=== PATIENT | female | born 1985 | race Caucasian/White ===

== ENCOUNTER 2020-11-08 09:46 | Outpatient (REF) | payer OTHER, SELFPAY ==
[2020-11-08 11:12] LABS: MANUAL DIFF FLAG NO
[2020-11-08 11:25] LABS: Basophils Percent Auto 0.6 % (0-2); Eosinophils Percent Auto 0.7 % (0-4); Hematocrit 43.3 % (37-47); Hemoglobin 14.7 g/dl (12.0-16.0); Imm Gran Abs Auto 0.01 X10*3/uL (0.00-0.03); Imm Gran Pct Auto 0.2 % (0.0-0.4); Lymphocytes Absolute Auto 1.6 X10*3/uL (1.2-4.9); Lymphocytes Percent Auto 28.8 % (20-40); Mean Corpuscular HGB Conc 33.9 g/dl (31.0-35.0); Mean Corpuscular Hemoglobin 30.6 pg (27.0-33.0); Mean Platelet Volume 11.4 fL (9.4-12.3); Monocytes Absolute Auto 0.3 X10*3/uL (0.1-1.2); Monocytes Percent Auto 4.6 % (2-11); Neutrophils Absolute Auto 3.6 X10*3/uL (2.0-8.3); Neutrophils Percent Auto 65.1 % (45-73); Platelet Count 260 X10*3/uL (160-400); Red Blood Count 4.81 X10*6/uL (4.20-5.50); Red Cell Distribution Width 12.1 % (11.0-16.0); White Blood Count 5.5 X10*3/uL (4.8-10.8)
[2020-11-08 11:59] LABS: Alanine Aminotransferase 23 U/L (0-31); Albumin Level 4.3 g/dL (3.5-5.0); Alkaline Phosphatase 87 U/L (39-117); Anion Gap 12 (12-20); Aspartate Amino Transferase 22 U/L (5-31); Bilirubin Total 0.6 mg/dL (0.0-1.0); Blood Urea Nitrogen 13 mg/dL (9-16); Calcium 9.1 mg/dL (8.4-10.2); Carbon Dioxide 26 mmol/L (22-29); Chloride 104 mmol/L (96-108); Cholesterol 168 mg/dL; Estimated Glomerular Filt Rate > 60; Glucose Fasting 85 mg/dL (60-99); HDL Cholesterol 49 mg/dL; LDL Cholesterol Calculated 103 mg/dl; Potassium 4.4 mmol/L (3.3-5.1); Sodium 138 mmol/L (135-145); Triglycerides 81 mg/dL
== END 2020-11-08 09:47 | disposition home or self-care (01) ==
LOC: HO.HMGCLDS 09:46
PROVIDERS: PCP Nurse Practitioner Family; Visit Provider Nurse Practitioner Family
DX: Z00.00 Encounter for general adult medical examination without abnormal findings (principal)
CPT/HCPCS: 36415; 80053; 80061; 84443; 85025

== ENCOUNTER 2020-11-22 10:27 | Outpatient (REF) | payer OTHER, SELFPAY ==
--- NOTE | ~2020-11-22 | CT_ITS ---
CT ANGIOGRAM BRAIN, HEAD CLINICAL INFORMATION: Family history of ischemic heart disease. COMPARISON: None available. TECHNIQUE: Test bolus sequences followed by intravenous administration 100 mL of Omnipaque 350 intravenous contrast. Helical imaging was performed in the axial plane from the skull base to the vertex. Delayed postcontrast imaging of the head was also performed. Vascular post-processing, including 2-dimensional and 3-dimensional reformatted images were created and reviewed on an independent workstation under concurrent physician supervision. Stenoses are graded per criteria similar to NASCET. This CT examination was performed using dose optimization techniques as appropriate, variously including the following: *Automated exposure control *Adjustment of mA and/or kV according to patient size (this includes techniques or standardized protocols for targeted exams where dose is matched to indication/reason for exam; i.e. extremities or head) *Use of iterative reconstruction technique FINDINGS: The anterior and posterior intracranial arterial circulations are normal in caliber. There are no significant arterial stenoses and there are no acute arterial occlusions within the head or neck. No aneurysms. There is no intracranial hemorrhage, hydrocephalus, extra-axial surface collection, midline shift, or other herniation pattern. Dhaliwal to white matter differentiation is diffusely maintained without evidence of an evolved acute territorial infarct. The basilar cisterns are preserved. No significant soft tissue abnormality. No acute osseous abnormality. The paranasal sinuses and the mastoid air cells are well aerated. CT/CT angio head IMPRESSION: Unremarkable CTA of the head.
--- NOTE | ~2020-11-22 | CT_ITS ---
EXAMINATION: CT CHEST WITH CONTRAST CLINICAL INFORMATION: Family history of ischemic heart disease. COMPARISON: None TECHNIQUE: Multidetector volumetric CT imaging of the chest was obtained after the administration of 50 mL of Omnipaque 350 intravenous contrast without immediate adverse reactions. Axial MIP volume rendering provided. Sagittal and coronal reformatted images were obtained. This CT examination was performed using dose optimization techniques as appropriate, variously including the following: *Automated exposure control *Adjustment of mA and/or kV according to patient size (this includes techniques or standardized protocols for targeted exams where dose is matched to indication/reason for exam; i.e. extremities or head) *Use of iterative reconstruction technique DLP: 504 mGy-cm FINDINGS: UNIT TRUST MANAGER: Normal LUNGS: The lungs are clear with no evidence of inflammation or nodules. MEDIASTINUM: The mediastinum is normal. The heart size is normal. No coronary artery calcification is seen. There is no pericardial effusion. The thoracic aorta is normal in caliber. PLEURA: There is no pleural effusion. No pleural mass or thickening. AXILLA: No lymphadenopathy. UPPER ABDOMEN: There is a small low-attenuation lesion in the right lobe of the liver measuring 5 mm axial image 4 series 11. This is characterize due to small size but may represent a cyst. Images through the upper abdomen are otherwise unremarkable. OSSEOUS STRUCTURES: There are mild degenerative changes of the spine. CT/CT chest w con IMPRESSION: Unremarkable examination.
[2020-11-22] MEDS: iohexoL 350 MG/ML 100 ML INFUS..BTL IV (11:55)
== END 2020-11-22 10:28 | disposition home or self-care (01) ==
LOC: HO.CT 10:27
PROVIDERS: Visit Provider Nurse Practitioner Family
DX: Z82.49 Family history of ischemic heart disease and other diseases of the circulatory system (principal)
CPT/HCPCS: 70496; 71260; Q9967

== ENCOUNTER 2021-06-02 09:03 | Outpatient (REF) | payer OTHER, SELFPAY ==
[2021-06-02 13:59] LABS: CT PCR NOT DETECTED (Not Detect.); NG PCR NOT DETECTED (Not Detect.)
[2021-06-04 14:50] LABS: BV Int Neg Control Negative (Negative); BV Int Pos Control Positive (Positive)
[2021-06-06 21:16] LABS: HPV mRNA E6/E7 rflx Not Detected (Not Detected)
== END 2021-06-02 09:04 | disposition home or self-care (01) ==
LOC: HO.LAB 09:03
PROVIDERS: PCP Nurse Practitioner Family; Visit Provider Advanced Practice Midwife
DX: Z01.419 Encounter for gynecological examination (general) (routine) without abnormal findings (principal); Z11.51 Encounter for screening for human papillomavirus (HPV); Z20.2 Contact with and (suspected) exposure to infections with a predominantly sexual mode of transmission
CPT/HCPCS: 87480; 87491; 87510; 87591; 87624; 87660; 88142

== ENCOUNTER 2021-10-23 13:07 | Outpatient (REF) | payer OTHER, SELFPAY ==
[2021-10-24 06:54] LABS: CT PCR NOT DETECTED (Not Detect.); NG PCR NOT DETECTED (Not Detect.)
[2021-10-24 15:40] LABS: BV Int Neg Control Negative (Negative); BV Int Pos Control Positive (Positive)
== END 2021-10-23 13:08 | disposition home or self-care (01) ==
LOC: HO.LAB 13:07
PROVIDERS: PCP Nurse Practitioner Family; Visit Provider Advanced Practice Midwife
DX: R10.2 Pelvic and perineal pain (principal); Z30.433 Encounter for removal and reinsertion of intrauterine contraceptive device
CPT/HCPCS: 58300; 58301; 81025; 87480; 87491; 87510; 87591; 87660

== ENCOUNTER 2022-07-11 10:46 | Outpatient (REF) | payer OTHER, SELFPAY ==
--- NOTE | ~2022-07-11 | US_ITS ---
EXAMINATION: US VENOUS ULTRASOUND WITH DOPPLER LOWER EXTREMITY, BILATERAL CLINICAL INFORMATION: Localized edema COMPARISON: None TECHNIQUE: Ultrasound of the right and left lower extremity deep veins is performed from the hip to the calf with compression sonography and color and pulse Doppler assessment. Spectral analysis with color-flow imaging is performed. FINDINGS: RIGHT: There is normal venous compression and respiratory variation and augmented flow. The visualized common femoral vein, superficial femoral vein, profunda femoral vein, popliteal vein, and the trifurcation region shows no evidence of deep venous thrombosis. There is no significant popliteal fossa cyst. LEFT: There is normal venous compression and respiratory variation and augmented flow. The visualized common femoral vein, superficial femoral vein, profunda femoral vein, popliteal vein, and the trifurcation region shows no evidence of deep venous thrombosis. There is no significant popliteal fossa cyst. If the patient's symptoms persist, followup ultrasound in 5 days 7 days might be of value to exclude proximal propagation from a non-visualized calf vein. US/US venous duplex LE BI IMPRESSION: No DVT demonstrated in the right and left lower extremity.
== END 2022-07-11 10:47 | disposition home or self-care (01) ==
LOC: HO.HMGCX 10:46
PROVIDERS: PCP Nurse Practitioner Family; Visit Provider Nurse Practitioner Family
DX: R60.0 Localized edema (principal)
CPT/HCPCS: 93970

== ENCOUNTER → 2023-01-09 10:00 | Outpatient (REF) | payer OTHER, SELFPAY ==
--- NOTE | 2023-01-09 10:04 | CA_ITS ---
Transthoracic Echocardiogram Patient (Last, First, Middle): Radha Russell L Gender: Female Date of : 1985 Age: 37 Procedure Date: 01/09/2023 Procedure Type: Transthoracic Echocardiogram Location: OP Height: 162.56 cm Weight: 88.45 kg BSA: 1.94 m2 Heart Rate: bpm BP: 122 / 78 mmHg Conference Producer: Referring MD: Edinson Pacheco [facility]- Dermatology Physician Assistant: Gabriel Montalvo MD Symptoms: M79.89 - Other specified soft tissue disorders Study Quality: Fair ECG Rhythm: Sinus Conclusions: - Essentially normal study Findings Left Ventricle Normal left ventricular size, thickness, and systolic function. The visually estimated ejection fraction is between 55-60%. Spectral Doppler is indicative of a normal filling pattern. Right Ventricle Normal right ventricular cavity size and systolic function. Atria Both atria are normal in size. There is no evidence of interatrial shunt. Aortic Valve The aortic valve structure and function is likely normal. There is no aortic valve stenosis. There is no aortic valve regurgitation. Mitral Valve Likely normal mitral valve structure and function. There is trace mitral valve regurgitation. There is no mitral valve stenosis. Pulmonic Valve The pulmonic valve was not well visualized. Tricuspid Valve Likely normal tricuspid valve structure and function. There is trace tricuspid valve regurgitation. The right ventricular systolic pressure is normal. The right ventricular systolic pressure is 15 mmHg. Normal right atrial pressure. There is no evidence of pulmonary hypertension. Great Vessels All visible segments of the aorta are normal in size. The pulmonary artery was not well visualized. Venous The inferior vena cava is normal in size and collapses greater than 50% with inspiration. Pericardium/Pleural There is no evidence of pericardial effusion. Prior Study Comparison No prior study available for comparison. Measurements 2D Linear Measurements IVSd: 1.00 0.6-0.9/0.6-1.0 cm LVIDd: 4.57 3.9-5.3/4.2-5.9 cm LVIDd Index: 2.36 2.4-3.2/2.2-3.1 cm/m2 LVIDs: 2.86 2.0-3.6 cm LVPWd: 1.03 0.7-1.1 cm Ao Root: 2.70 2.1-3.5 cm LA Diam: 3.80 2.7-3.8/3.0-4.0 cm LAIDs Index: 1.96 1.5-2.3 cm/m2 LV Mass: 199.73 67-162/88-224 g LV Mass Index: 102.96 43-95/49-115 g/m2 LVOT Diam: 2.10 3.0+(-)1.3 cm 2D Systolic Function EF 4C: 54.90 >55% EF 2C: 60.80 >55% EF BiP: 58.30 >55% Mitral Valve MV Pk E: 0.84 MV PK A: 0.61 MV Decel Time: 182.00 E/A: 1.40 E'Lateral: 13.60 E'Medial: 8.49 E/E' Med: 9.90 E/E' Lat: 6.20 PHT: 53.00 MVA PHT: 4.15 Decel Barnwell: 4.60 Aortic Valve AoV Pk Chuy: 1.44 AoV Mn Chuy: 0.97 AoV VTI: 0.32 AoV Pk Grad: 8.00 Aov Mn Grad: 5.00 MORENA Cont.VTI: 2.47 LVOT LVOT Pk Chuy: 1.14 LVOT Mn Chuy: 0.72 LVOT VTI: 0.23 LVOT Pk Grad: 5.00 LVOT Mn Grad: 3.00 LVOT Diam: 2.10 LVOT Area: 3.46 Diastolic Function MV Pk E: 0.84 MV Pk A: 0.61 E/A: 1.40 E'Medial: 8.49 E/E' Med: 9.90 E' Laterial: 13.60 E/E' Lat: 6.20 Right Ventricle TAPSE (mm): 26.00 TVS' Chuy: 12.00 Tricuspid Valve TR Pk Chuy: 1.75 TR Pk Grad: 12.00 RA Press: 3.00 RVSP: 15.00 Great Vessels Aorta Ao Root-2D: 2.70 2.0-3.7 cm Ao Asc: 2.80 2.1-3.4 cm Pulmonary Valve PV Pk Chuy: 1.24 Peak PV Grad: 6.00 Updated in Other Vendor System with Status of Final Gabriel Montalvo MD electronically signed on 01/09/2023 3:32:51 PM with status of Final
--- NOTE | 2023-01-09 10:04 | HM_ITS ---
Conclusion: 1. Patient was monitored for total period of 2 days and 23 hours 2. Baseline was normal sinus rhythm with average heart rate of 87 beats per minute 3. No significant pauses noted 4. Rare PACs noted with 1 run of SVT, lasting 9 beats at 131 beats per minute 5. Patient had 4 events marked, without associated symptoms reported correlating with sinus rhythm or sinus tach with PAC and 1 with short run of SVE MTDD
== END ==
LOC: HO.CARD 10:00
PROVIDERS: PCP Nurse Practitioner Family; Visit Provider Nurse Practitioner Family
DX: R00.2 Palpitations (principal); R60.0 Localized edema
CPT/HCPCS: 93242; 93306

== ENCOUNTER → 2023-01-09 10:04 | Outpatient (BNV) | payer OTHER, SELFPAY | PROVIDERS: PCP Nurse Practitioner Family; Visit Provider Internal Medicine Cardiovascular Disease | DX: I49.1 Atrial premature depolarization (principal) | CPT/HCPCS: 93244; 93306 ==

== ENCOUNTER 2023-04-10 11:09 | Outpatient (AMB) | payer OTHER, SELFPAY ==
--- NOTE | 2023-04-10 11:10 | MHC.PC.OV ---
Vital Signs 04/10/23 11:12 Height 5 ft 4 in Weight 200 lb BMI 34.3 BP 130/80 Blood Pressure Location Lt brachial Position Sitting Pulse 96 Pulse Source Pulse Oximeter Pulse Oximetry (%) 98 Oxygen Delivery Method Room Air Intake Visit Reasons: PE Allergies No Known Allergies Allergy (Verified 07/11/22 08:36) Medication List - Last Reconciled 04/10/23 by EMILIE BoykinLAYNE levonorgestrel (Mirena) intrauterine losartan-hydrochlorothiazide 50-12.5 mg 1 tab PO DAILY 90 days Tobacco use date assessed: 12/26/22 Dental Screening Dental Screen Date: 04/10/23 Did you have a dental visit in the last 12 months?: No Did you have a dental problem in the last 6 months where you did not have access to dental care?: No Was dental information given to patient?: Patient has dentist HPI PE HPI Details Pt is here for a PE. Will order labs. Pt is following up with cardiology due to palpitations. She had a recent holter and echo, see results. I had sent propranalol 60mg er for pt to try. She reports not starting this. 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 Janes Bell, Ayleen Wesley, Declan Morales and colleagues, with an educational aurora from [employer]. Review of Systems Const Denies chills and Denies fever(s) Eyes Denies blurry vision ENT Denies vertigo, Denies dizziness and Denies sore throat Card Denies chest pain at rest, Denies chest pain with activity, Denies diaphoresis, Denies dyspnea and Denies dyspnea on exertion Resp Denies cough, Denies dyspnea, Denies dyspnea on exertion and Denies wheezing GI Denies abdominal pain, Denies melena, Denies hematochezia, Denies constipation, Denies diarrhea and Denies loose stools Denies hematuria Musc Denies numbness and Denies tingling Skin/Breast Denies lesions Neuro Denies vertigo, Denies dizziness, Denies numbness and Denies tingling Psych Denies anxiety, Denies depression, Denies homicidal ideation, Denies suicidal ideation and Denies other (substance abuse) Aller/Immun Denies wheezing Physical exam (Primary Care) Vital Signs: Last Vital Signs Pulse 96 04/10/23 11:12 BP 130/80 04/10/23 11:12 Pulse Ox 98 04/10/23 11:12 Oxygen Delivery Method Room Air 04/10/23 11:12 BMI result Body Mass Index 34.3 Tobacco/Smoking Status: Tobacco use Status Tobacco use date assessed 12/26/22 04/10/23 11:11 Patient Tobacco Use Status Never used Tobacco 04/10/23 11:11 e-Cigarette/Vaping Use Never Used 04/10/23 11:11 Thrive Assessment: Date of Thrive Assessment Date Thrive assessed 10/24/21 04/10/23 11:11 Const General: cooperative Nutritional Appearance: obese Orientation/consciousness: patient oriented x3 HENMT Head: Yes normal to inspection, Yes normocephalic and Yes atraumatic Ears: TM's normal bilaterally Eyes General: appearance normal, both eyes and all related structures Alignment and Position: alignment normal and position normal Neck Neck: Yes normal visual inspection and Yes no lymphadenopathy Thyroid: Thyroid normal Resp Effort & Inspection: normal respiratory effort Auscultation: clear to auscultation bilaterally Cardio Rate: regular rate Rhythm: regular rhythm Heart sounds: S1 normal heart sound present, S2 normal heart sound present and no murmurs GI Palpation (GI): Soft to palpation and nontender Auscultation: normal bowel sounds Skin Rashes: no rashes Neuro General: patient oriented x3, moves all extremities, no focal motor deficits and deep tendon reflexes 2+ bilaterally Romberg Test: Negative Psych Appearance: grossly normal Mental Status: mental status grossly normal Speech and movement: Normal speech and movement present Affect: normal affect Attitude: cooperative Thought process: Normal thought process present Thought content: Normal thought content present Insight: Good insight present (Psych) Judgement: Good judgement present (Psych) Assessment and Plan Assessment & Plan (1) Physical exam: Code(s): Z00.00 - Encounter for general adult medical examination without abnormal findings Plan: Labs ordered Plan The patient agreed to the use of a medical instructor for this encounter. Scribed for CELIO Douglas by Anna Marie Bowling medical instructor, on 04/10/2023 at 11:30 EST. Orders: Orders Comprehensive Hosmer. Panel Fast Today Z00.00 - Encounter for general adult medical examination without abnormal findings TSH reflex Free T4 Today Z00.00 - Encounter for general adult medical examination without abnormal findings Lipid Panel Today Z00.00 - Encounter for general adult medical examination without abnormal findings Complete Blood Count Auto Diff Today Z00.00 - Encounter for general adult medical examination without abnormal findings UA CC w/rflx Micro + Cult Today Z00.00 - Encounter for general adult medical examination without abnormal findings Medications: Changed From losartan-hydrochlorothiazide 50-12.5 mg 1 tab PO DAILY 30 days 30 tabs 2RF To losartan-hydrochlorothiazide 50-12.5 mg 1 tab PO DAILY 90 days 90 tabs 2RF Coding Level of Care Code Est Pt Prev Care 18-39y(65477) Diagnoses Physical exam Z00.00
[2023-04-10 11:12] VITALS: BP 130/80; PULSE 96; O2SAT 98; BMI 34.3
== END 2023-04-10 11:46 | disposition home or self-care (01) ==
LOC: HO.HMGC 11:09
PROVIDERS: PCP Nurse Practitioner Family; Visit Provider Nurse Practitioner Family
DX: Z00.00 Encounter for general adult medical examination without abnormal findings (principal)
CPT/HCPCS: 99395

== ENCOUNTER 2023-04-10 11:53 | Outpatient (REF) | payer OTHER, SELFPAY ==
[2023-04-10 13:08] LABS: MANUAL DIFF FLAG NO
[2023-04-10 13:15] LABS: Basophils Percent Auto 0.7 % (0-2); Eosinophils Absolute Auto 0.1 X10*3/uL (0.0-0.4); Eosinophils Percent Auto 1.5 % (0-4); Hematocrit 42.9 % (37.0-47.0); Hemoglobin 14.9 g/dl (12.0-16.0); Imm Gran Abs Auto 0.01 X10*3/uL (0.00-0.03); Imm Gran Pct Auto 0.2 % (0.0-0.4); Lymphocytes Absolute Auto 1.8 X10*3/uL (1.2-4.9); Lymphocytes Percent Auto 33.1 % (20-40); Mean Corpuscular HGB Conc 34.7 g/dl (31.0-35.0); Mean Corpuscular Hemoglobin 30.2 pg (27.0-33.0); Mean Platelet Volume 10.9 fL (9.4-12.3); Monocytes Absolute Auto 0.3 X10*3/uL (0.1-1.2); Monocytes Percent Auto 5.4 % (2-11); Neutrophils Absolute Auto 3.2 x10*3/uL (2.0-8.3); Neutrophils Percent Auto 59.1 % (45-73); Platelet Count 301 X10*3/uL (160-400); Red Blood Count 4.93 X10*6/uL (4.20-5.50); Red Cell Distribution Width 13.1 % (11.0-16.0); White Blood Count 5.4 X10*3/uL (4.8-10.8)
[2023-04-10 13:44] LABS: Appearance Urine Clear; Color Urine Dark Yellow; Glucose Urine UA Negative (Negative); Leukocyte Esterase Urine Small (1+) (Negative); Nitrite Urine Negative (Negative); Specific Gravity - Urine >= 1.030 (1.005-1.025); UMIC TRIGGER UACC YES; Urine Blood Negative (Negative); Urine Ketones Trace mg/dL (Negative); Urine Protein 30 (1+) mg/dL (Neg-Trace)
[2023-04-10 13:51] LABS: Bacteria Urine None Seen (None Seen); Hyaline Casts Urine 0-2 /LPF (0-2); UACC Culture Trigger YES
[2023-04-10 14:17] LABS: Alanine Aminotransferase 54 U/L (0-31); Albumin Level 4.3 g/dL (3.5-5.0); Alkaline Phosphatase 87 U/L (39-117); Anion Gap 14 (12-20); Aspartate Amino Transferase 32 U/L (5-31); Bilirubin Total 0.6 mg/dL (0.0-1.0); Blood Urea Nitrogen 13 mg/dL (9-16); Calcium 9.5 mg/dL (8.4-10.2); Carbon Dioxide 27 mmol/L (22-29); Chloride 104 mmol/L (96-108); Cholesterol 211 mg/dL (<200); Estimated Glomerular Filt Rate > 60; Glucose Fasting 92 mg/dL (60-99); HDL Cholesterol 45 mg/dL (>40); LDL Cholesterol Calculated 139 mg/dL (<100); Potassium 4.1 mmol/L (3.3-5.1); Sodium 141 mmol/L (135-145); TSH reflex Free T4 1.34 uIU/mL (0.32-4.0); Total Protein 7.6 g/dL (6.5-8.0); Triglycerides 139 mg/dL (<150)
== END 2023-04-10 11:54 | disposition home or self-care (01) ==
LOC: HO.HMGCLDS 11:53
PROVIDERS: PCP Nurse Practitioner Family; Visit Provider Nurse Practitioner Family
DX: Z00.00 Encounter for general adult medical examination without abnormal findings (principal); R82.90 Unspecified abnormal findings in urine; E66.9 Obesity, unspecified; I10 Essential (primary) hypertension; M79.89 Other specified soft tissue disorders
CPT/HCPCS: 36415; 80053; 80061; 81001; 84443; 85025; 87086

== ENCOUNTER 2023-04-17 12:38 | Outpatient (AMB) | payer OTHER, SELFPAY ==
--- NOTE | 2023-04-17 12:42 | MHC.OFFVIS ---
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 For the last few months or so, she has been noticing fluttering in the chest. These are off and on and can happen any time. Whenever these happen, she is quite bothered by. Underwent Holter for the same and that shows sinus tachycardia and some atrial ectopy. However, minimal burden. Otherwise, she also has had some lower extremity swelling and that led to vein procedures through vascular. She has had a couple of visits to [facility] for blood pressure issues and after that, put on blood pressure medications. Weight is on the higher side and she states she has gained some weight, probably about 20 lb or so over the last year. No documented obstructive sleep apnea. Otherwise, no history of any coronary disease, myocardial infarction or cardiomyopathy. 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 Current occupational exposures/hazards: No Gender identity: Female Cognitive needs: No Hearing needs: No Vision needs: No Female Reproductive History Menstrual Age of Menarche: 9 Review of Systems Const Denies chills, Denies daytime sleepiness, Denies fatigue, Denies fever(s), Denies frequent falls, Denies night sweats, Denies snoring, Denies weakness, Denies weight gain and Denies weight loss Eyes Denies loss of vision ENT Denies dizziness and Denies hearing loss Card Denies chest pain, Denies chest pain with activity, Denies syncope, Denies rapid heart rate, Denies edema, Denies claudication, Denies leg edema, Denies lightheadedness, Denies palpitations, Denies dyspnea, Denies dyspnea on exertion and Denies orthopnea Resp Denies cough, Denies excessive phlegm production, Denies dyspnea, Denies dyspnea on exertion, Denies snoring and Denies wheezing GI Denies abdominal pain, Denies hematochezia, Denies change in bowel habits, Denies change in stool character, Denies heartburn, Denies nausea and Denies vomiting Denies hematuria, Denies urinary frequency and Denies dysuria Musc Denies arthralgias, Denies muscle weakness, Denies numbness and Denies tingling Skin/Breast Denies nail changes and Denies rash Neuro Denies Abnormal speech present, Denies dizziness, Denies syncope, Denies frequent falls, Denies loss of vision, Denies memory loss, Denies numbness, Denies tingling and Denies weakness Psych Denies depression and Denies memory loss Endo Denies fatigue and Denies palpitations Aller/Immun Denies wheezing Physical Exam Vital Signs: Last Vital Signs Pulse 82 04/17/23 12:44 BP 128/92 H 04/17/23 12:44 Const General: comfortable and no acute distress Orientation/consciousness: patient oriented x3 HEENT Other: Unremarkable Head: Yes normal to inspection Neck Neck: Yes normal visual inspection Chest Chest palpation & inspection: normal inspection of the chest Resp Auscultation: clear to auscultation bilaterally Cardio Palpation: normal PMI Heart sounds: S1 normal heart sound present, S2 normal heart sound present, no gallops, no murmurs and no rubs GI Palpation (GI): Soft to palpation Back/Spine/Pelvis Other: unremarkable Skin General skin exam: no rashes or lesions noted Neuro General: patient oriented x3 Speech: No Abnormal speech present Extrem General: Yes normal to inspection Psych Mental Status: mental status grossly normal Office Procedures EKG Details: EKG with sinus rhythm at 82/Min; poor R-wave progression most likely from body habitus; [place]. [address]-[id number], Complete Assessment & Plan Assessment & Plan (1) Palpitations: Code(s): R00.2 - Palpitations (2) Sinus tachycardia: Code(s): R00.0 - Tachycardia, unspecified (3) Atrial arrhythmia: Code(s): I49.8 - Other specified cardiac arrhythmias (4) Leg swelling: Code(s): M79.89 - Other specified soft tissue disorders (5) Morbid obesity: Code(s): E66.01 - Morbid (severe) obesity due to excess calories Plan Echocardiogram with LVEF of 55-60%. No significant valvular issues and otherwise unremarkable. Holter shows underlying sinus rhythm and rare supraventricular ectopy. Sinus tachycardia noted. Various issues she has including atrial arrhythmias, lower extremity swelling as well as high blood pressure are likely all related to her weight. Hence primary treatment for all these would be to lose weight and hopefully, they would improve. She states she was prescribed beta-blockers which may be used for temporary relief but main focus should be still on weight loss. With regard to the lower extremity swelling, she has already undergone vein ablation. Again, losing weight will immensely help. For blood pressure, seems better than before when according to patient was as much as 200/100 mm Hg. Again, with weight loss, this should improve. We discussed about the above issues at great length. All questions answered. She will contact us with ongoing concerns. Otherwise, we will plan to follow her up in about 4-6 months. Coding Level of Care Code New Pt Level 4 (52059) Diagnoses Palpitations R00.2 Sinus tachycardia R00.0 Atrial arrhythmia I49.8 Leg swelling M79.89 Morbid obesity E66.01 CPT Codes EKG - CPT: 79375-[id number], Complete ([id number])
[2023-04-17 12:44] VITALS: BP 128/92; PULSE 82
== END 2023-04-17 13:14 | disposition home or self-care (01) ==
PROVIDERS: PCP Nurse Practitioner Family; Visit Provider Internal Medicine
DX: R00.2 Palpitations (principal); R00.0 Tachycardia, unspecified; I49.8 Other specified cardiac arrhythmias; M79.89 Other specified soft tissue disorders; E66.01 Morbid (severe) obesity due to excess calories
CPT/HCPCS: 93010; 99204

== ENCOUNTER → 2023-04-17 12:38 | Outpatient (BNVA) | payer OTHER, SELFPAY | PROVIDERS: PCP Nurse Practitioner Family; Visit Provider Internal Medicine | DX: R00.2 Palpitations (principal); R00.0 Tachycardia, unspecified | CPT/HCPCS: 93005 ==

== ENCOUNTER 2023-04-24 09:55 | Outpatient (REF) | payer OTHER, SELFPAY ==
--- NOTE | ~2023-04-24 | US_ITS ---
EXAMINATION: US ABDOMEN COMPLETE CLINICAL INFORMATION: Elevated liver enzymes. Abnormal levels of other serum enzymes. COMPARISON: CT abdomen and pelvis without and with contrast dated 12/20/2014. TECHNIQUE: Real-time imaging of the abdominal viscera. Technically difficult study secondary to bowel gas and body habitus. FINDINGS: PANCREAS: Partially visualized pancreas is unremarkable. The tail and pancreatic head are obscured by bowel gas. ABDOMINAL AORTA: The proximal, mid, and distal segments are normal in caliber. INFERIOR VENA CAVA: Visualized portions are normal. LIVER: Liver is echogenic and heterogeneous. Liver is enlarged with the right lobe measured approximately 20 cm. The liver contour is normal. No focal hepatic lesion. There is no intrahepatic biliary duct dilatation seen. GALLBLADDER: There is irregular wall most likely due to adenomyomatosis with tiny 0.3 cm polyp. The gallbladder is physiologically distended without evidence of stones, sludge, polyps, wall thickening or pericholecystic fluid. COMMON BILE DUCT: Normal in caliber measuring 0.3 cm in diameter. RIGHT KIDNEY: Normal. No hydronephrosis. No renal calculi or focal parenchymal lesions. The kidney measures 12.0 cm in maximum dimension. LEFT KIDNEY: Normal. No hydronephrosis. No renal calculi or focal parenchymal lesions. The kidney measures 12.5 cm in maximum dimension. SPLEEN: Normal. The spleen measures 9.2 cm in maximum dimension. FREE FLUID: None. US/US abdomen complete IMPRESSION: 1. Hepatomegaly and heterogeneous echogenicity of the liver without focal lesion. 2. Adenomyomatosis of the gallbladder with small polyp.
== END 2023-04-24 09:56 | disposition home or self-care (01) ==
LOC: HO.HMGCX 09:55
PROVIDERS: PCP Nurse Practitioner Family; Visit Provider Nurse Practitioner Family
DX: R74.8 Abnormal levels of other serum enzymes (principal)
CPT/HCPCS: 76700

== ENCOUNTER 2024-08-10 10:52 | Outpatient (REF) | payer OTHER, SELFPAY ==
[2024-08-10 13:14] LABS: MANUAL DIFF FLAG NO
[2024-08-10 13:20] LABS: Appearance Urine Clear; Color Urine Dark Yellow; Glucose Urine UA Negative (Negative); Leukocyte Esterase Urine Trace (Negative); Nitrite Urine Negative (Negative); PH 7.5 (5.0-9.0); Specific Gravity - Urine >= 1.030 (1.005-1.025); UMIC TRIGGER UACC YES; Urine Blood Negative (Negative); Urine Ketones Trace mg/dL (Negative); Urine Protein 30 (1+) mg/dL (Neg-Trace)
[2024-08-10 13:22] LABS: Basophils Absolute Auto 0.1 X10*3/uL (0.0-0.2); Basophils Percent Auto 0.7 % (0-2); Eosinophils Absolute Auto 0.1 X10*3/uL (0.0-0.4); Eosinophils Percent Auto 1.2 % (0-4); Hematocrit 43.8 % (37.0-47.0); Hemoglobin 14.9 g/dl (12.0-16.0); Imm Gran Abs Auto 0.02 X10*3/uL (0.00-0.03); Imm Gran Pct Auto 0.3 % (0.0-0.4); Lymphocytes Absolute Auto 2.4 X10*3/uL (1.2-4.9); Lymphocytes Percent Auto 34.3 % (20-40); Mean Corpuscular Hemoglobin 29.8 pg (27.0-33.0); Mean Corpuscular Volume 87.6 fL (80.0-98.0); Mean Platelet Volume 11.3 fL (9.4-12.3); Monocytes Absolute Auto 0.4 X10*3/uL (0.1-1.2); Monocytes Percent Auto 5.1 % (2-11); Neutrophils Percent Auto 58.4 % (45-73); Platelet Count 280 X10*3/uL (160-400); Red Cell Distribution Width 12.8 % (11.0-16.0); White Blood Count 6.9 X10*3/uL (4.8-10.8)
[2024-08-10 13:29] LABS: Bacteria Urine None Seen (None Seen); Hyaline Casts Urine 0-2 /LPF (0-2); RBC Urine 0-2 /HPF (0-2); WBC Urine 0-5 /HPF (0-5)
[2024-08-10 14:02] LABS: Alanine Aminotransferase 35 U/L (0-31); Albumin Level 4.3 g/dL (3.5-5.0); Alkaline Phosphatase 75 U/L (39-117); Anion Gap 8 (12-20); Aspartate Amino Transferase 29 U/L (5-31); Bilirubin Total 0.7 mg/dL (0.0-1.0); Blood Urea Nitrogen 12 mg/dL (9-16); Calcium 9.3 mg/dL (8.4-10.2); Carbon Dioxide 27 mmol/L (22-29); Chloride 107 mmol/L (96-108); Cholesterol 186 mg/dL (<200); Estimated Glomerular Filt Rate > 60; Glucose Fasting 96 mg/dL (60-99); HDL Cholesterol 45 mg/dL (>40); LDL Cholesterol Calculated 121 mg/dL (<100); Potassium 4.2 mmol/L (3.3-5.1); Sodium 138 mmol/L (135-145); Total Protein 7.6 g/dL (6.5-8.0); Triglycerides 103 mg/dL (<150)
[2024-08-10 14:23] LABS: TSH reflex Free T4 1.73 uIU/mL (0.32-4.0)
--- OUTSIDE RECORDS SUMMARY | 2024-08-10 15:45 | XMS_ITS | Continuity of Care Document ---
Author Organization [facility] Address [address] 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 Name Role Phone Clifford Crenshaw Unavailable Unavailable Allergies, Adverse Reactions, Alerts Substance Reaction Status Criticality No Known Allergies Active No Inform ation Medications Medication Instructions Dosage Effective Dates (start - stop) Status Comments Mirena 20 mcg/24 hours (6 yrs) 52 mg intrauterine device - Active Procedures Procedure Date Office/Outpt E&M Established 15 Mins Jan Duplex Scan-extrem Veins; Uni/ Endovenous Laser, 1st Vein Endovenous laser vein addon Offic/outpt E&m Estab 5 Min Trial - Tele medicine Office/Outpt E&M Established 15 Mins Aug Duplex Scan-extrem Veins; Comp Office/Oupt E&M New Pt 30 Mins Advance Directives Directive Yes / No Effective Date File Name No Information Encounters Encounter Description Practice Location Reason(s) For Visit Diagnoses Date Provider Providers Copied on Encounter Office/Outpt E&M Established 15 Mins [facility], [address] [facility] [address], [id number], [place] tel:[phone] CVR - [facility] Chronic venous htn w oth comp of bilateral low extrm 3 Shameka Horton. [address] [place] [address], [place], [place], [id number], [place]. tel:[phone] Referring Provider: Edinson Salazar, [address] [place] [address], [place], [address]. tel:[phone] [facility] MD CORDERO, [address] [place] [address] [address], [id number], [place] tel:[phone] [facility] for f/u exam aft trtmt for cond oth than malig neoplmVenous insufficiency (chronic) (peripheral) 3 Samir Haji. [address] [place] [address], [place], [address], [place]. tel:[phone] Referring Provider: Edinson Salazar, [address] [place] [address], [place], [address]. tel:[phone] [facility] MD CORDERO, [address] [place] [address] [address], [id number], [place] tel:[phone] [facility] Venous insufficiency (chronic) (peripheral) 3 Samir Haji. [address] [place] [address], [place], [address], [place]. tel:[phone] Referring Provider: Edinson Salazar, [address] [place] [address], [place], [address]. tel:[phone] Offic/outpt E&m Estab 5 Min Trial - Telemedicine [facility], [address] [place] [address] [address], [id number], [place] tel:[phone] CVR - [facility] Body mass index (BMI) 32.0-32.9, adultVenous insufficiency (chronic) (peripheral) 3 Samir Haji. [address] [place] [address], [place], [address], [place]. tel:[phone] Referring Provider: Edinson Salazar, [address] [facility], [place], [address]. tel:[phone] Office/Outpt E&M Established 15 Mins [facility], [address] [place] [address] [address], [id number], [place] tel:[phone] [place] Venous insufficiency (chronic) (peripheral) 3 Samir BAUTISTA FACS T JOHN Haji. [address] [place] [address], [facility] [place], [address], [place]. tel:[phone] Referring Provider: Edinson Salazar, [address] [place] [address], [place], [address]. tel:[phone] [facility] MD CORDERO, [address] [place] [address] [address], [place], [id number], [place] tel:[phone] [facility] [place] Venous insufficiency (chronic) (peripheral) 3 Samir BAUTISTA FACS PADMINI Haji. [address] [place] [address], [facility] [place], [address], [place]. tel:[phone] Referring Provider: Edinson Salazar, [address] [place] [address], [place], [address]. tel:[phone] Office/Oupt E&M New Pt 30 Mins [facility] C[facility], [address] [place] [address] [address], [id number], [place] tel:[phone] [facility] [place] Localized edemaVenous insufficiency (chronic) (peripheral)P ruritus, unspecified 3 Samir BAUTISTA FACS PADMINI Haji. [address] [place] [address], [place] [address], [place], [address], [place]. tel:[phone] Referring Provider: Edinson Salazar, [address] [facility], [place], [address]. tel:[phone] Family History Family Member Type Diagnosis Age At Onset No Information Payers Payer name Insurance type Covered democrat ID Toshia mccloud(s) [facility] [id number] Social History Type Description Quantity Date Captured Comments Alcohol Use Details Unknown Caffeine Use Details Unknown Tobacco Use Status Never smoked tobacco 2022 Smoking Status Never smoker Non-Smoking Tobacco Use Details : No Details Available : No Details Available Sex Female Vital Signs Date / Time: Height Weight BMI Pulse Rate Blood Pressure Temperature Respiratory Rate Body Surface Area Head Circumference Head Circ. Percentile Wt./Sanchez. Percentile BMI percentile Pulse Ox Inhaled Ox 3:25 PM 65.00 in 138/88 mm[Hg] Chief Complaint And Reason For Visit No Information Reason For Referral Reason For Referral No Information Plan Of Treatment Date Type Action Status Goal Diet education completed Goal Diet education completed Referral Ordered: Weight management: Referral to physician timeframe: 3 Months (related to Body mass index (BMI) 32.0-32.9, adult) ordered History Of Present Illness Encounter Date Complaint History Of Prese nt Illness No Information Functional Status Date Functional Assessmen t No Information Instructions Date Instruction Additional Infor diaz Patient education booklet given Related to Chrn Vns Hyprtnsn w/Compl (Pain Edema Swelling); BILAT Giving Encouragement to Exercise Related to Body mass index [BMI] 32.0-32.9, adult Diet education Related to Body mass index [BMI] 32.0-32.9, adult Patient education booklet given Related to Venous Insufficiency (Chronic / Peripheral) Diet education Related to Body mass index (BMI) 32.0-32.9, adult Giving Encouragement to exercise Related to Body mass index (BMI) 32.0-32.9, adult Lifestyle education Related to B anu mass index (BMI) 32.0-32.9, adult Patient education booklet given Related to Localized edema Assessments Type Assessment Date assessment Chronic venous htn w oth comp of bilateral low extrm Patient Care Teams Name Effective Dates (start - stop) Status Members No Information
== END 2024-08-10 10:53 | disposition home or self-care (01) ==
LOC: HO.HMGCLDS 10:52
PROVIDERS: PCP Nurse Practitioner Family; Visit Provider Nurse Practitioner Family
DX: I10 Essential (primary) hypertension (principal)
CPT/HCPCS: 36415; 80053; 80061; 81001; 84443; 85025

== ENCOUNTER 2024-08-13 10:39 | Outpatient (AMB) | payer OTHER, SELFPAY ==
[2024-08-13 10:45] VITALS: BP 122/80; PULSE 80; RESP 14; TEMP 37.2; O2SAT 97; BMI 34.0
--- NOTE | 2024-08-13 10:45 | A.OFFPC_ITS ---
Vital Signs 08/13/24 10:45 Height 5 ft 4 in Weight 198 lb BMI 34.0 BP 122/80 Blood Pressure Location Lt brachial Position Sitting Respiration 14 Pulse 80 Pulse Source Pulse Oximeter Temp 98.9 F Temp Source Oral Pulse Oximetry (%) 97 Oxygen Delivery Method Room Air Intake Visit Reasons: Followup meds Intake Note: pt is here for f/up medication Barge Worker Required: No Accompanied by: Self / Same As Patient Allergies No Known Allergies Allergy (Verified 08/13/24 10:45) Medication List - Last Reconciled 08/13/24 by Edinson Pacheco, COMPUTER ENGINEERING TECHNOLOGIST- levonorgestrel (Mirena) intrauterine losartan-hydrochlorothiazide 50-12.5 mg 1 tab PO DAILY 90 days Tobacco use date assessed: 08/13/24 Dental Screening Dental Screen Date: 08/13/24 Did you have a dental visit in the last 12 months?: Yes Did you have a dental problem in the last 6 months where you did not have access to dental care?: No Was dental information given to patient?: Patient has dentist HPI Followup meds HPI Details Chief Complaint The patient presents for a follow-up of her hypertension management. History of Present Illness The patient is a 38-year-old female presenting with a follow-up for her essential hypertension. Initially diagnosed prior to the current visit, the patient has been managing her condition with lifestyle modifications. 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 The patient denies experiencing any related symptoms such as chest pain, shortness of breath, abdominal pain, constipation, diarrhea, dizziness, headaches, blurred vision, or any changes in mood such as suicidal or homicidal thoughts. Her blood pressure readings at home have remained stable. She was informed to monitor her blood pressure regularly and to report if it rises above 140/90 mmHg consistently. Her previous laboratory results included elevated liver enzymes and presence of protein in urine, raising potential concerns for the nonalcoholic fatty liver disease (seen on previous US) and possible exercise-induced proteinuria. There is a noted trend of liver enzyme improvement. 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 - Exercise: Currently returning to the [facility], engaging in physical activity - Stress: Reports a significant decrease in stress levels - Hydration: Actively maintaining hydrat ion Health Maintenance - Mammogram: Order placed; patient due f or screening - Liver enzyme monitoring: Recent labs i ndicate a downward trend - Urinary protein: Monitored for potenti al exercise-related impact Review of Systems - Cardiovascular: Denies chest pain - Respiratory: Denies shortness of breat h - Gastrointestinal: Denies abdominal tisha n, constipation, diarrhea - Neurological: Denies dizziness, headac hes, blurred vision - Psychiatric: Denies suicidal or homici gracie ideation Physical Exam General: Cooperative, healthy appearing, comfortable, no acute distress and well developed, obese Orientation: Patient oriented x3 Limitations: No limitations Head: Normal to inspection Ears: Hearing grossly normal bilaterally Nose: Normal external nose present Face and sinus: Normal facial exam Eyes: Appearance normal, both eyes and all related structures Neck: Normal visual inspection and Yes full ROM Respiratory: Normal respiratory effort and able to speak in complete sentences. Clear to auscultation bilaterally Cardiovascular: Regular rate and rhythm. Normal S1 and S2 GI: Normal to inspection. Soft to palpation and nontender Skin: No rashes or lesions noted Neuro: Patient oriented x3 Extremities: Normal to inspection Results - Labs: Liver enzymes trending down, not ed presence of +1 protein in urine Plan - Essential Hypertension: Continue home monitoring of blood pressure, return for annual physical or sooner if home readings surpass 140/90 mmHg. - Nonalcoholic Fatty Liver Disease: Cont inue monitoring liver function tests; reassess based on trends and clinical symptoms. - Proteinuria: Consider potential relati on to physical activity; maintain hydration and monitor for any changes. - Request mammogram as the screening is due. Patient was informed and verbally consented to the use of an ambient scribe for clinic note documentation during this visit. Discussion Notes Patient Instructions - Monitor blood pressure at home regular ly. Report if readings exceed 140/90 mmHg consistently. - Continue regular physical activity and return to the gym as planned. - Ensure adequate hydration, particularl y in relation to exercise. - Mammogram scheduled as advised; follow the appointment once it is set up. - Return for an annual physical examinat ion or sooner if concerns arise. 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 1. Little interest or pleasure in doing things: not at all 2. Feeling down, depressed, or hopeless: not at all 3. Trouble falling or staying asleep, or sleeping too much: not at all 4. Feeling tired or having little energy: not at all 5. Poor appetite or overeating: not at all 6. Feeling bad about yourself - or that you are a failure or have let yourself or your family down: not at all 7. Trouble concentrating on things, such as reading the newspaper or watching television: not at all 8. Moving or speaking so slowly that other people could have noticed. Or the opposite - being so fidgety or restless that you have been moving around a lot more than usual: not at all 9. Thoughts that you would be better off or of hurting yourself in some way: not at all Total score: 0 Depression Screening Interpretation: Negative Depression Screening Done: Yes 53744 - PHQ-9 Billing: Yes Source: Developed by Drs. Janes Bell, Ayleen Wesley, Declan Morales and colleagues, with an educational aurora from [employer]. Thrive Questionnaire Date Thrive assessed: 08/13/24 I am a: Patient What is your living situation today?: I have a steady place to live Within the past 12 months, did the food you bought not last and you didn't have the money to get more?: Never true Within the past 12 months, did you worry whether your food would run out before you got money to buy more?: Never true Do you have trouble paying for medicines?: No Do you have trouble getting transportation to medical appointments?: No Do you have trouble paying your heating and electricity bill?: No Do you have trouble taking care of your child, family member or friend?: No Do you have trouble with day-to-day activities such as bathing, preparing meals, shopping, managing finances, etc.?: No Are you currently unemployed and looking for a job?: No Are you interested in more education?: No Please select the resources that you would like help with: None Currently or been in a relationship where the following occur: No concerns reported THRIVE Score: 0 AUDIT C Alcohol Use Questionnaire (AUDIT-C) 1. How often do you have a drink containing alcohol?: Never 3. How often do you have six or more drinks on one occasion?: Never Total Score: 0 Score Reviewed/Action Taken: Yes MYCHAL-7 AMB Questionnaire MYCHAL-7 Date MYCHAL - 7 assessed: 08/13/24 Feeling nervous, anxious, or on edge: 0 = Not at all Not being able to stop or control worryin = Not at all Worrying too much about different things: 0 = Not at all Trouble relaxin = Not at all Being so restless that it is hard to sit still: 0 = Not at all Becoming easily annoyed or irritable: 0 = Not at all Feeling afraid as if something awful might happen: 0 = Not at all Total MYCHAL-7 score (0-4 normal; 5-9 mild; 10-14 moderate; 15-21 severe): 0 Source: Developed by Drs. Janes Bell, Ayleen Wesley, Declan Morales and colleagues, with an educational aurora from [employer]. MYCHAL-7 Assessment Billing MYCHAL-7 Assessment Tool: MYCHAL-7 Assessment 01486 Physical exam (Primary Care) Vital Signs: Last Vital Signs Temp 98.9 F 08/13/24 10:45 Pulse 80 08/13/24 10:45 Resp 14 08/13/24 10:45 BP 122/80 08/13/24 10:45 Pulse Ox 97 08/13/24 10:45 Oxygen Delivery Method Room Air 08/13/24 10:45 BMI result Body Mass Index 34.0 Tobacco/Smoking Status: Tobacco use Status Tobacco use date assessed 08/13/24 08/13/24 10:46 Patient Tobacco Use Status Never used Tobacco 08/13/24 10:46 e-Cigarette/Vaping Use Never Used 08/13/24 10:46 PHQ-9: PHQ-9 Score PHQ-9: Total score 0 08/13/24 11:06 Depression Screening Interpretation: Negative Thrive Assessment: Date of Thrive Assessment Date Thrive assessed 08/13/24 08/13/24 10:46 Currently or been in a relationship where the following occur: No concerns reported Coding Level of Care Code Est Pt Level 3 (77961) Diagnoses HTN (hypertension) I10 Additional Codes MYCHAL-7 Assessment Billing - MYCHAL-7 Assessment Tool: MYCHAL-7 Assessment 52523 ([id number]) PHQ-9 - 26721 - PHQ-9 Billing: Yes ([id number]) Assessment & Plan Assessment & Plan (1) HTN (hypertension): Code(s): I10 - Essential (primary) hypertension Category: Medical Plan . Orders: Orders Complete Blood Count Auto Diff Today I10 - Essential (primary) hypertension MM screening mammo BI Today Z12.31 - Encounter for screening mammogram for malignant neoplasm of breast UA CC w/rflx Micro + Cult Today I10 - Essential (primary) hypertension Comprehensive Met. Panel Today I10 - Essential (primary) hypertension Medications: Refilled losartan-hydrochlorothiazide 50-12.5 mg 1 tab PO DAILY 90 days 90 tabs 0RF losartan-hydrochlorothiazide 50-12.5 mg 1 tab PO DAILY 90 tabs 4RF 90 days
--- OUTSIDE RECORDS SUMMARY | 2024-08-13 14:20 | XMS_ITS | Continuity of Care Document ---
Author Organization [facility] Address [address] [facility] [address] [place] [address] Phone Care Team Providers Care Surveyor Geophysical Prospecting Name Role Phone Clifford Crenshaw Unavailable Unavailable [...] E&M Established 15 Mins [facility], [address] [facility] [address], [id number], [place] tel:[phone] CVR - [facility] Chronic venous htn w oth comp of bilateral low extrm 3 Shameka Horton. [address] [place] [address], [place], [place], [id number], [place]. tel:[phone] Referring Provider: Edinson Salazar, [address] [place] [address], [place], [address]. tel:[phone] [facility] CORDERO, [address] [place] [address] [address], [id number], [place] tel:[phone] [facility] Encntr for f/u exam aft trtmt for cond oth than malig neoplmVenous insufficiency (chronic) (peripheral) 3 Samir Haji. [address] [place] [address], [place], [address], [place]. tel:[phone] Referring Provider: Edinson Salazar, [address] [place] [address], [place], [address]. tel:[phone] [facility] CORDER[place], [address] [place] [address] [address], [id number], [place] tel:[phone] [facility] Venous insufficiency (chronic) (peripheral) 3 Samir Haji. [address] [place] [address], [place], [address], [place]. tel:[phone] Referring Provider: Edinson Salazar, [address] [place] [address], [place], [address]. tel:[phone] Offic/outpt E&m Estab 5 Min Trial - Telemedicine [facility], [address] [place] [address] [address], [id number], [place] tel:[phone] CVR - [facility] Body mass index (BMI) 32.0-32.9, adultVenous insufficiency (chronic) (peripheral) 3 Samir Haji. [address] [place] [address], [place], [address], [place]. tel:[phone] Referring Provider: Edinson Salazar, [address] [facility], [place], [address]. tel:[phone] Office/Outpt E&M Established 15 Mins [facility], [address] [place] [address] [address], [id number], [place] tel:[phone] [facility] [place] Venous insufficiency (chronic) (peripheral) 3 Samir BAUTISTA FACS T JOHN Haji. [address] [place] [address], [place], [address], [place]. tel:[phone] Referring Provider: Edinson Salazar, [address] [place] [address], [place], [address]. tel:[phone] [facility] MD CORDERO, [address] [place] [address] [address], [place], [id number], [place] tel:[phone] [facility] [place] Venous insufficiency (chronic) (peripheral) 3 Samir BAUTISTA FACS PADMINI Haji. [address] [place] [address], [place], [address], [place]. tel:[phone] Referring Provider: Edinson Salazar, [address] [place] [address], [place], [address]. tel:[phone] Office/Oupt E&M New Pt 30 Mins [facility] C[facility], [address] [place] [address] [address], [id number], [place] tel:[phone] [facility] [place] Localized edemaVenous insufficiency (chronic) (peripheral)P ruritus, unspecified 3 Samir BAUTISTA FACS PADMINI Haji. [address] [place] [address], [place] [address], [facility] [place] [facility] [place], [address], [place]. tel:[phone] Referring Provider: Edinson Salazar, [address] [facility], [place], [address]. tel:[phone] Family History Family Member Type Diagnosis Age At Onset No Information Payers Payer name Insurance type Covered green party ID Toshia mccloud(s) [facility] [id number] Social History Type Description Quantity Date Captured [...]
== END 2024-08-13 11:15 | disposition home or self-care (01) ==
PROVIDERS: PCP Nurse Practitioner Family; Visit Provider Nurse Practitioner Family
DX: I10 Essential (primary) hypertension (principal)

== ENCOUNTER → 2024-08-13 10:39 | Outpatient (BNVA) | payer OTHER, SELFPAY | PROVIDERS: PCP Nurse Practitioner Family; Visit Provider Nurse Practitioner Family | DX: I10 Essential (primary) hypertension (principal); K76.0 Fatty (change of) liver, not elsewhere classified; R80.9 Proteinuria, unspecified | CPT/HCPCS: 96127 ==

== ENCOUNTER 2024-10-05 11:28 | Outpatient (REF) | payer BC, SELFPAY | END 2024-10-05 11:29 | disposition home or self-care (01) | LOC: HO.MAMMO 11:28 | PROVIDERS: PCP Nurse Practitioner Family; Visit Provider Nurse Practitioner Family | DX: Z12.31 Encounter for screening mammogram for malignant neoplasm of breast (principal) | CPT/HCPCS: 77063; 77067 ==

== ENCOUNTER → 2024-10-05 11:30 | Outpatient (BNV) | payer BC, SELFPAY | PROVIDERS: PCP Nurse Practitioner Family; Visit Provider Internal Medicine | DX: Z12.31 Encounter for screening mammogram for malignant neoplasm of breast (principal) | CPT/HCPCS: 77063; 77067 ==